=== PATIENT | female | born 1965 | race Two or more races ===

== ENCOUNTER 2022-03-11 10:56 | Emergency (ER) | payer OTHER ==
[~2022-03-11] VITALS: Ht 167.6 cm; Wt 48.5 kg
[2022-03-11] MEDS ORDERED: PEPCID AC20 MG PO (13:54)
[2022-03-11] MEDS ORDERED: OSEL75CA PO (13:54)
== END 2022-03-11 15:36 | disposition home or self-care (01) ==
LOC: ER 10:56
DX: J10.1 Influenza due to other identified influenza virus with other respiratory manifestations (principal); Z20.822 Contact with and (suspected) exposure to COVID-19

== ENCOUNTER 2023-02-03 14:44 | Emergency (ER) | payer OTHER ==
[~2023-02-03] VITALS: Ht 167.6 cm; Wt 47.6 kg
[~2023-02-03 14:44] MED LIST: OSEL75CA PO; PEPCID AC20 MG PO
== END 2023-02-03 21:41 | disposition home or self-care (01) ==
LOC: ER 14:44
DX: R53.1 Weakness (principal); Z20.822 Contact with and (suspected) exposure to COVID-19